=== PATIENT | female | born 1990 | race Hispanic/Latino ===

== ENCOUNTER 2021-01-01 12:28 | Outpatient (CLI) | payer OTHER | END 2021-01-01 12:29 | disposition home or self-care (01) | LOC: CSHLAB 12:28 | PROVIDERS: ATTEND Obstetrics & Gynecology | DX: Z01.812 Encounter for preprocedural laboratory examination (principal); Z20.822 Contact with and (suspected) exposure to COVID-19; N83.201 Unspecified ovarian cyst, right side | CPT/HCPCS: 84703; 85027; 86850; 86900; 86901; U0003; U0005 ==